=== PATIENT | female | born 1940 | race Caucasian/White ===

== ENCOUNTER → 2022-06-17 12:28 | Outpatient (BNVA) | payer BC, SELFPAY | PROVIDERS: PCP Internal Medicine Nephrology; Referring Provider Dermatology; Visit Provider Podiatrist Foot & Ankle Surgery | DX: M20.5X2 Other deformities of toe(s) (acquired), left foot (principal); M20.41 Other hammer toe(s) (acquired), right foot; M20.42 Other hammer toe(s) (acquired), left foot; M77.42 Metatarsalgia, left foot | CPT/HCPCS: 73630 ==

== ENCOUNTER → 2022-09-09 10:23 | Outpatient (BNVA) | payer MEDICARE, SELFPAY | PROVIDERS: PCP Internal Medicine Nephrology; Visit Provider Podiatrist Foot & Ankle Surgery | DX: M20.5X2 Other deformities of toe(s) (acquired), left foot (principal); M20.41 Other hammer toe(s) (acquired), right foot; M20.42 Other hammer toe(s) (acquired), left foot; M77.42 Metatarsalgia, left foot; T85.848A Pain due to other internal prosthetic devices, implants and grafts, initial encounter; Y82.8 Other medical devices associated with adverse incidents | CPT/HCPCS: 99214 ==

== ENCOUNTER → 2022-09-18 09:19 | Outpatient (BNVA) | payer MEDICARE, SELFPAY | PROVIDERS: PCP Internal Medicine Nephrology; Visit Provider Podiatrist Foot & Ankle Surgery | DX: M20.5X2 Other deformities of toe(s) (acquired), left foot (principal); M20.41 Other hammer toe(s) (acquired), right foot; M20.42 Other hammer toe(s) (acquired), left foot; M77.42 Metatarsalgia, left foot | CPT/HCPCS: 99214 ==

== ENCOUNTER 2022-09-24 06:51 | Day surgery (SDC) | payer MEDICARE, SELFPAY ==
[2022-09-23 09:43] VITALS: BMI 20.9
[2022-09-24] VITALS (7 sets, daily range): BP systolic 106–151; BP diastolic 48–82; PULSE 53–61; RESP 16–18; TEMP 36.1–36.8; O2SAT 94–96
--- NOTE | 2022-09-24 | XR_ITS ---
WS: [id number] XR foot LT 2V 55607 REASON FOR EXAM: HARDWARE REMOVAL/PAINFUL HARDWARE FINDINGS: There has been removal of 2 of the oblique screws in the navicular tarsal bone adjacent to the talona vicular joint. The other pre-existing hardware remains in place. XR/XR foot LT 2V 11232 IMPRESSION: Hardware removal as above.
[2022-09-24] MEDS: gabapentin 300 mg Capsule PO (07:29)
[2022-09-24] MEDS: CELEcoxib 200 mg Capsule 400 MG PO (07:29)
[2022-09-24] MEDS: sodium chloride 0.9% 1,000 ML 30 ML IV (07:29)
[2022-09-24 07:34] LABS: Basophils % 0.4 %; Eosinophils # 0.1 10^3/uL (0.0-0.8); Eosinophils % 1.7 %; Hematocrit 28.5 % (37.0-47.0); Hemoglobin 9.6 g/dL (11.5-15.3); Lymphocytes # 1.1 10^3/uL (0.8-4.8); Lymphocytes % 21.9 %; Mean Corpuscular HGB Conc 33.7 g/dL (30.0-36.0); Mean Corpuscular Hemoglobin 38.2 pg (28.0-34.0); Mean Corpuscular Volume 113.5 fl (81-99); Mean Platelet Volume 11.4 fL (7.4-10.4); Monocytes # 0.5 10^3/uL (0.2-0.9); Monocytes % 9.7 %; Neutrophils # 3.43 10^3/uL (1.8-7.7); Neutrophils % 66.3 %; Nucleated Red Blood Cells % 0 %; Platelet Count 147 10^3/cmm (130-400); Red Blood Count 2.51 10^6/uL (4.1-5.3); Red Cell Distribution Width 13.5 % (12.1-15.1); White Blood Count 5.2 10^3/uL (4.0-10.0)
--- NOTE | 2022-09-24 08:22 | ANES.PREANE2 ---
Pre-Anesthetic Assessment Height/Weight: Height 1.52 m Weight 48.534 kg Temp Pulse Resp BP Pulse Ox O2 Del Method 98.2 F 61 18 151/79 96 09/24/22 07:11 09/24/22 07:11 09/24/22 07:11 09/24/22 07:11 09/24/22 07:11 09/24/22 07:12 Preop Diagnosis: Painful hardware left foot; hallux extensus left foot Operation Date: 09/24/22 08:25 Proposed Procedures p EHL tendon lengthening, Removal of deep orthopedic hardware left foot and Possible revision left foot 1st tarsometatarsal joint fusion,CPT 16383 2, CPT 55622 and CPT 87946,M20.5X2,T84.84XA(Left) - JIM Gr Hardware Removal(Left) - JIM Gr Fusion Metatarsophalangel Joint Metatarsophalangel Arthrodesis(Left) - Luciano Bah DPM Familial anesthetic complications: none Was Beta Shira taken within 24 hours: N/A Was Clonidine taken within 24 hours: N/A Last intake: Intake Last Liquid Date 09/23/22 Last Liquid Time 20:00 Last Solid Date 09/23/22 Last Solid Time 16:00 Social No alcohol and No tobacco Exam alert, oriented x 3, clear to auscultation bilaterally and regular rate & rhythm Airway Submandibular: within normal limits Cervical ROM: within normal limits Mallampati: Class II Dentition: false GI Gastroesophageal Reflux Disease Anesthetic Plan ASA status: 2 Anesthesia: General Medications/Allergies Home Medications Medication Instructions Recorded Confirmed Last Taken Type acyclovir 400 mg tablet 400 mg PO DAILY 06/17/22 09/23/22 09/23/22 History allopurinol 300 mg tablet 300 mg PO DAILY 06/17/22 09/23/22 09/23/22 History ascorbic acid (vitamin C) 500 mg 500 mg PO DAILY 06/17/22 09/23/22 09/23/22 History capsule bumetanide 1 mg tablet 1 mg PO BID 06/17/22 09/23/22 09/23/22 History calcium carbonate 600 mg calcium 600 mg PO DAILY 06/17/22 09/23/22 09/23/22 History (1,500 mg) tablet (Calcium) celecoxib 200 mg capsule 200 mg PO DAILY 06/17/22 09/23/2209/23/23 History clonazepam 0.5 mg tablet 0.25 mg PO BEDTIME 06/17/22 09/23/22 09/23/22 History colchicine 0.6 mg capsule 0.6 mg PO DAILY 06/17/22 09/23/22 09/23/22 History cyanocobalamin (vitamin B-12) 500 250 mcg PO DAILY 06/17/22 09/23/22 09/23/22 History mcg tablet (B-12 DOTS) estradiol 2 mg tablet 2 mg PO DAILY 06/17/22 09/23/22 09/23/22 History folic acid 1 mg tablet 1 mg PO DAILY 06/17/22 09/23/22 09/23/22 History lysine 500 mg tablet 500 mg PO DAILY 06/17/22 09/23/22 09/23/22 History pantoprazole 40 mg tablet,delayed 40 mg PO BID 06/17/22 09/23/22 09/23/22 History release potassium citrate 99 mg capsule 99 mg PO DAILY 06/17/22 09/23/22 09/23/22 History DME: Walker #1 ea 09/18/22 09/18/22 Unknown Rx Allergies Allergy/AdvReac Type Severity Reaction Status Date / Time No Known Allergies Allergy Verified 09/24/22 07:05 Current Medications Generic Name Dose Route Start Last Admin Trade Name Luann PRN Reason Stop Dose Admin Sodium Chloride 1,000 mls @ 30 mls/hr 09/24/22 07:00 09/24/22 07:29 Sodium Chloride 0.9% IV 09/25/22 06:59 30 mls/hr .Q24H MYKE Administration Data Anesthesia 09/24/22 07:24 Short CBC 09/24/22 Range/Units 07:24 WBC 5.2 (4.0-10.0) 10^3/uL Hgb 9.6 L (11.5-15.3) g/dL Hct 28.5 L (37.0-47.0) % MCV 113.5 H (81-99) fl Plt Count 147 (130-400) 10^3/cmm Neut % (Auto) 66.3 % Neut # (Auto) 3.43 (1.8-7.7) 10^3/uL Cardiac Studies: No Data to Display
--- NOTE | 2022-09-24 08:53 | W.PM.OPSUD ---
Surgery/Procedure H&P Update DATE OF PROCEDURE: September 24, 2022 DATE H&P PERFORMED: 09/18/22 CHANGES TO PREVIOUS DOCUMENTATION: No changes PREOP DIAGNOSIS: Painful hardware left foot; hallux extensus left foot PLANNED PROCEDURE: Operation Date: 09/24/22 08:25 Proposed Procedures p EHL tendon lengthening, Removal of deep orthopedic hardware left foot and Possible revision left foot 1st tarsometatarsal joint fusion,CPT 27237 2, CPT 61219 and CPT 55107,M20.5X2,T84.84XA(Left) - Luciano Bah DPM s Hardware Removal(Left) - JIM Gr Fusion Metatarsophalangel Joint Metatarsophalangel Arthrodesis(Left) - Luciano Bah DPM
[2022-09-24] MEDS: ceFAZolin 2,000 MG in sodium chloride 0.9% (plus) 50 ML 100 MG IV (09:10)
--- NOTE | 2022-09-24 15:12 | ANE.PACU2 ---
Inpatient post-anesthesia follow up: Airway intact: Yes Vital signs: Temperature 97.3 F Pulse Rate 55 Respiratory Rate 18 Blood Pressure 140/82 Pulse Oximetry 94 Oxygen Delivery Me thod Room Air Oxygen Flow Rate 6 Fraction of Inspir ed Oxygen Hydration adequate: Yes Nausea and vomiting: No Pain level: 2 Mental status: Baseline
--- NOTE | 2022-09-24 17:40 | PM.OP ---
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 Deep orthopedic hardware removal left foot CPT 50915 2. Left extensor hallucis longus lengthening CPT 79797 Implants: One 18mm nitinol staple [place] 28 Surgeon: Dr. Luciano Bah, D.P.M. Estimated blood loss: Less than 10 cc 72 minutes Complications: None Findings: See above Procedure: Patient is a 82-year-old female that has a history of painful retained orthopedic hardware left foot and hallux extensiveness of the left foot. The patient has had the aforementioned chief complaint for some time. Conservative treatment measures have been attempted and the patient has opted for surgical intervention at this time. A lengthy discussion regarding the procedure, including risks and complications has been had with the patient and is noted in the recent clinic note. Written and verbal consent have been obtained. All patient questions have been answered to the patient?s satisfaction. No written or verbal guarantees have been given or implied. The patient has been NPO since midnight. The history has been reviewed and the history and physical is current. The signed consent was confirmed and placed in the patient chart. Patient imaging has been reviewed and is consistent with the diagnosis. Under mild sedation, the patient was brought into the operating room and placed on the table in the supine position. IV antibiotics were given by the anesthesia team as preoperative surgical prophylaxis. IV sedation was then performed by the anesthesiateam. A pneumatic tourniquet was then placed about the left ankle. A local field block was then performed using 0.5% Marcaine plain the operative extremity was then prepped and draped in the usual fashion. The extremity was then elevated and exsanguinated before the tourniquet was inflated to 250 mmHg. After inflation, the following procedure was then performed. Attention was directed to the left foot where a 5 cm incision was made over the previously healed cicatrix over the first tarsometatarsal joint. Dissection was carried down through subcutaneous superficial fascia. Any bleeders were cauterized as necessary during dissection. Dissection was carried out to expose the underlying orthopedic hardware. The locking screws the plate were noted to be backing out and pressing into the adjacent soft tissues. The plate and screws were then removed in standard fashion without incident. A second stab incision was made with a #15 blade plantar to the first within the medial longitudinal arch and the lag screw that was visualized on C-arm imaging was removed percutaneously without incident. The first tarsometatarsal joint articulation was then evaluated and noted to be persistently mobile indicating nonunion. The medial cuneiform was evaluated and noted to be soft and unhealthy in appearance. It was decided at this point to stabilize the joint with an 18 mm vital stable be used. The drill was used to drill in preparation for the stapler and the staple was inserted per the manufacture protocol. This added stability to the first tarsometatarsal joint. Attention was then directed to the extensor hallucis longus tendon. It was isolated before a standard Z-lengthening was performed using a #15 blade. The hallux was noted to sit in a more rectus position after lengthening of this tendon. The tendon was then repaired using 2-0 Ethibond at the length and position. Good position of the hallux was noted clinically. Final images were taken using C-arm fluoroscopy to confirm positioning of the screw. The site was then irrigated with sterile saline before attention was directed to closure. Deep tissue was closed with 3-0 Vicryl followed by subcuticular closure with 4-0 Vicryl and skin closure with 4-0 nylon. The incision sites were dressed with Xeroform, 4 x 4 gauze, Kerlix, Niles bandage. Tourniquet was let down good hyperemic response was noted to all digits of the left foot The patient tolerated the procedure and anesthesia well and without complication. The patient was transported from the operating room to the recovery room with vital signs stable and vascular status intact to all digits of the left foot. The patient was given both written and verbal instructions to remain nonweightbearing to the operative extremity, to keep dressings/splint clean, dry and intact and to take pain medication as directed. The patient will follow-up in the outpatient setting at their scheduled appointment. The patient was discharged with my personal number and was instructed to call if any questions or issues should arise. They were discharged home once anesthesia criteria was met.
== END 2022-09-24 11:49 | disposition home or self-care (01) ==
PROVIDERS: PCP Internal Medicine Nephrology; Visit Provider Podiatrist Foot & Ankle Surgery
PROC: (CPT 28261; principal; 2022-09-24 08:15)
PROC: (CPT 20680; 2022-09-24 08:15)
PROC: (CPT 28750; 2022-09-24 08:15)
DX: M20.5X2 Other deformities of toe(s) (acquired), left foot (principal); T84.84XA Pain due to internal orthopedic prosthetic devices, implants and grafts, initial encounter; Y83.8 Other surgical procedures as the cause of abnormal reaction of the patient, or of later complication, without mention of misadventure at the time of the procedure; K21.9 Gastro-esophageal reflux disease without esophagitis
CPT/HCPCS: 20680; 28225; 36415; 73620; 76000; 85025; C1713; C9290; J0690; J2704; J3010; J3490; J7030

== ENCOUNTER → 2022-10-09 12:48 | Outpatient (BNVA) | payer MEDICARE, SELFPAY | PROVIDERS: PCP Internal Medicine Nephrology; Visit Provider Podiatrist Foot & Ankle Surgery | DX: M77.42 Metatarsalgia, left foot (principal); M20.5X2 Other deformities of toe(s) (acquired), left foot; M20.41 Other hammer toe(s) (acquired), right foot; M20.42 Other hammer toe(s) (acquired), left foot | CPT/HCPCS: 73630; 99024 ==

== ENCOUNTER → 2022-11-20 12:12 | Outpatient (BNVA) | payer MEDICARE, SELFPAY | PROVIDERS: PCP Internal Medicine Nephrology; Visit Provider Podiatrist Foot & Ankle Surgery | DX: M77.42 Metatarsalgia, left foot (principal); M20.5X2 Other deformities of toe(s) (acquired), left foot; M20.41 Other hammer toe(s) (acquired), right foot; M20.42 Other hammer toe(s) (acquired), left foot; Z98.890 Other specified postprocedural states | CPT/HCPCS: 73630; 99024 ==

== ENCOUNTER → 2022-12-21 12:51 | Outpatient (BNVA) | payer MEDICARE, SELFPAY | PROVIDERS: PCP Internal Medicine Nephrology; Visit Provider Podiatrist Foot & Ankle Surgery | DX: Z98.890 Other specified postprocedural states (principal); M20.41 Other hammer toe(s) (acquired), right foot; M20.42 Other hammer toe(s) (acquired), left foot; M77.42 Metatarsalgia, left foot | CPT/HCPCS: 73630; 99024; 99213 ==

== ENCOUNTER → 2023-02-10 12:37 | Outpatient (BNVA) | payer MEDICARE, SELFPAY | PROVIDERS: PCP Internal Medicine Nephrology; Visit Provider Podiatrist Foot & Ankle Surgery | DX: R60.0 Localized edema (principal); M25.571 Pain in right ankle and joints of right foot; M25.572 Pain in left ankle and joints of left foot | CPT/HCPCS: 99213 ==

== ENCOUNTER → 2023-06-15 12:53 | Outpatient (BNVA) | payer MEDICARE, SELFPAY | PROVIDERS: PCP Internal Medicine Nephrology; Visit Provider Podiatrist Foot & Ankle Surgery | DX: M25.571 Pain in right ankle and joints of right foot; M25.572 Pain in left ankle and joints of left foot | CPT/HCPCS: 99213 ==

== ENCOUNTER → 2023-10-06 12:18 | Outpatient (BNVA) | payer MEDICARE, SELFPAY | PROVIDERS: PCP Internal Medicine Nephrology; Visit Provider Internal Medicine Rheumatology | DX: Z79.899 Other long term (current) drug therapy (principal); M19.90 Unspecified osteoarthritis, unspecified site; Z11.1 Encounter for screening for respiratory tuberculosis; Z11.59 Encounter for screening for other viral diseases | CPT/HCPCS: 36415; 73130; 80076; 82306; 82565; 85025; 86480; 86704; 86803; 87340; 99204 ==

== ENCOUNTER → 2023-10-11 13:17 | Outpatient (BNVA) | payer MEDICARE, SELFPAY | PROVIDERS: PCP Internal Medicine Nephrology; Visit Provider Podiatrist Foot & Ankle Surgery | DX: M25.571 Pain in right ankle and joints of right foot; M25.572 Pain in left ankle and joints of left foot | CPT/HCPCS: 99213 ==

== ENCOUNTER → 2024-03-02 11:12 | Outpatient (BNVA) | payer MEDICARE, SELFPAY | PROVIDERS: PCP Internal Medicine Nephrology; Visit Provider Internal Medicine Rheumatology | DX: M05.79 Rheumatoid arthritis with rheumatoid factor of multiple sites without organ or systems involvement (principal); Z79.899 Other long term (current) drug therapy; Z71.85 Encounter for immunization safety counseling; Z11.1 Encounter for screening for respiratory tuberculosis; Z11.59 Encounter for screening for other viral diseases; N18.9 Chronic kidney disease, unspecified | CPT/HCPCS: 99214 ==

== ENCOUNTER → 2024-07-14 09:45 | Outpatient (BNVA) | payer MEDICARE, SELFPAY | PROVIDERS: PCP Internal Medicine Nephrology; Referring Provider Nurse Practitioner Family; Visit Provider Specialist | DX: R21 Rash and other nonspecific skin eruption (principal); Z79.899 Other long term (current) drug therapy; M05.79 Rheumatoid arthritis with rheumatoid factor of multiple sites without organ or systems involvement; D75.89 Other specified diseases of blood and blood-forming organs; R20.9 Unspecified disturbances of skin sensation | CPT/HCPCS: 36415; 80053; 82607; 82746; 84439; 84443; 85007; 85027; 96116; 99204 ==

== ENCOUNTER → 2025-01-04 13:50 | Outpatient (BNVA) | payer MEDICARE, SELFPAY | PROVIDERS: PCP Internal Medicine Nephrology; Visit Provider Specialist | DX: R21 Rash and other nonspecific skin eruption (principal); Z79.899 Other long term (current) drug therapy; M05.79 Rheumatoid arthritis with rheumatoid factor of multiple sites without organ or systems involvement; D75.89 Other specified diseases of blood and blood-forming organs; R20.9 Unspecified disturbances of skin sensation | CPT/HCPCS: 99214 ==